=== PATIENT | female | born 1955 | race African-American/Black ===

== ENCOUNTER 2025-05-08 01:00 | Emergency (ER) | payer MEDICARE, OTHER ==
[~2025-05-08] VITALS: Ht 170.2 cm; Wt 59.0 kg
[2025-05-08 01:00] VITALS: BP 153/99
[~2025-05-08 01:00] MED LIST: LISD50CA2 PO
[2025-05-08] MEDS ORDERED: AMLO10TA59 PO (01:19)
[2025-05-08] MEDS ORDERED: CHLO50TA PO (01:19)
[2025-05-08 01:50] LABS: PLATELET COUNT (AUTO) 254 K/uL (179-408); RED BLOOD CELL COUNT(AUTO) 4.57 MIL/uL (3.63-4.92); RED CELL DISTRIBUTION WIDTH 14.0 % (12.3-17.7); WHITE BLOOD COUNT (AUTO) 5.1 K/uL (3.8-11.8)
[2025-05-08 02:02] LABS: CREATININE 0.6 mg/dL (0.6-1.3); SODIUM SERUM 147.0 mmol/L (136-145); UREA NITROGEN, BLOOD 12.0 mg/dL (7-18)
[2025-05-08 02:08] LABS: ASPARTATE AMINOTRANSFERASE 13.0 U/L (15-37); TOTAL PROTEIN, SERUM 8.0 g/dL (6.4-8.2)
[2025-05-08] MEDS ORDERED: APIXABAN 5 MG TABLET ONE (02:48)
[2025-05-08] MEDS: APIXABAN 5 MG TABLET PO ONE (02:50)
[2025-05-08] MEDS ORDERED: APIX5TAB PO (02:54)
[2025-05-08 03:05] VITALS: BP 140/90; TEMP 98; O2SAT 98
[2025-05-09] MEDS ORDERED: APIX5TAB PO (19:57)
== END 2025-05-08 03:07 | disposition home or self-care (01) ==
LOC: ER 01:18
DX: I82.622 Acute embolism and thrombosis of deep veins of left upper extremity (principal); M79.642 Pain in left hand; R07.9 Chest pain, unspecified; Z79.899 Other long term (current) drug therapy; Z88.7 Allergy status to serum and vaccine; Z60.2 Problems related to living alone
CPT/HCPCS: 36415; 71045; 85025; 85730; A4606; A4663

== ENCOUNTER 2025-05-09 20:10 | Emergency (ER) | payer MEDICARE, OTHER ==
[~2025-05-09] VITALS: Ht 170.2 cm; Wt 59.0 kg
[2025-05-09 20:10] VITALS: BP 143/99
[~2025-05-09 20:10] MED LIST changes: +AMLO10TA59 PO; +APIX5TAB PO; +CHLO50TA PO
[2025-05-09] MEDS ORDERED: APIXABAN 5 MG TABLET ONE (20:16)
[2025-05-09] MEDS: APIXABAN 5 MG TABLET PO ONE (20:18)
[2025-05-09 20:26] VITALS: BP 145/98; TEMP 98; O2SAT 98
== END 2025-05-09 20:26 | disposition home or self-care (01) ==
LOC: ER 20:10
DX: I82.622 Acute embolism and thrombosis of deep veins of left upper extremity (principal); Z79.01 Long term (current) use of anticoagulants; Z79.899 Other long term (current) drug therapy; Z86.718 Personal history of other venous thrombosis and embolism; Z88.7 Allergy status to serum and vaccine
CPT/HCPCS: A4606; A4663